=== PATIENT | female | born 1990 | race Caucasian/White ===

== ENCOUNTER 2016-07-12 11:44 | Emergency (ER) | payer OTHER ==
[~2016-07-12] VITALS: Ht 157.5 cm; Wt 89.8 kg
[~2016-07-12 11:44] MED LIST: CEPH-443 PO; CIPR500T4 PO; DOCU-144 PO; FLUC150T17 PO; IBUP-1542 PO; IBUP800T25 PO; PREN1TAB49; PREN1TAB49 PO
[2016-07-12 11:48] VITALS: Ht 157.5 cm; Wt 89.8 kg
[2016-07-12 12:36] LABS: ADD SCAN DIFF NO
[2016-07-12 12:38] LABS: BASOPHILS % 0.4 % (0.0-2.0); EOSINOPHILS % 0.1 % (0.0-7.0); HEMATOCRIT 40.7 % (37.0-47.0); LYMPHOCYTES # 1.2 10^3/ul (0.8-2.9); LYMPHOCYTES % 15.5 % (15.0-51.0); MEAN CORPUSCULAR HEMOGLOBIN 31.3 pg (29.0-33.0); MEAN CORPUSCULAR HGB CONC 34.4 g/dl (32.0-37.0); MEAN CORPUSCULAR VOLUME 91.1 fl (82.0-101.0); MEAN PLATELET VOLUME 9.7 fl (7.4-10.4); MONOCYTE # 0.4 10^3/ul (0.3-0.9); MONOCYTES % 4.5 % (0.0-11.0); NEUTROPHIL # 6.3 10^3/ul (1.6-7.5); NEUTROPHILS % 79.2 % (39.0-77.0); PLATELET COUNT 234 10^3/UL (140-415); RED BLOOD COUNT 4.47 10^6/ul (4.20-5.40); RED CELL DISTRIBUTION WIDTH 12.2 % (11.5-14.5); WHITE BLOOD COUNT 7.9 10^3/ul (4.8-10.8)
[2016-07-12 13:00] LABS: ADD UMIC NO; URINE BILIRUBIN (Dip) NEGATIVE (NEGATIVE); URINE BLOOD (Dip) NEGATIVE (NEGATIVE); URINE COLOR LT. YELLOW (YELLOW); URINE GLUCOSE (Dip) NEGATIVE (NEGATIVE); URINE KETONES (Dip) NEGATIVE (NEGATIVE); URINE LEUKOCYTE ESTERASE (Dip) NEGATIVE (NEGATIVE); URINE NITRITE (Dip) NEGATIVE (NEGATIVE); URINE TOTAL PROTEIN (Dip) NEGATIVE (NEGATIVE); URINE UROBILINOGEN (Dip) 0.2 E.U./dL (0.1-1.0)
--- NOTE | 2016-07-12 13:52 | ERD ---
ER Documentation Chief Complaint Date/Time DATE: 07/12/16 TIME: 13:51 Chief Complaint 3 weeks with spotting today HPI This is a 25 year old female G 2 P1 with last menstrual period of June 06, 2016 presenting to the emergency department complaining of mild pelvic pain and spotting for the past 2 days. She rates the pain mild in severity that comes and goes and cramping patient states she has very light bleeding and about 2 pantiliners in 1 day. She denies any nausea, vomiting, diarrhea. Denies any fevers. Patient states that she went to her primary care physician last Thursday and which she found out she was with a urine test. ROS All systems reviewed and are negative except as per history of present illness. Medications Home Meds Active Scripts Docusate Sodium* (Colace*) 100 Mg Capsule, 100 MG PO TID, #30 CAP Prov:ANTHONY DIAZ PA-C 08/21/15 Ibuprofen* (Motrin*) 800 Mg Tab, 800 MG PO Q6H Y for PAIN AND OR ELEVATED TEMP, #30 TAB Prov:ANTHONY DIAZ PA-C 08/21/15 Ciprofloxacin Hcl* (Ciprofloxacin Hcl*) 500 Mg Tablet, 500 MG PO BID, #14 TAB Prov:SAL SCHNEIDER PA-C 02/08/15 Cephalexin* (Keflex*) 500 Mg Capsule, 500 MG PO QID for 5 Days, CAP Prov:BRADLEY WHITMAN MD 09/14/14 Ibuprofen* (Motrin*) 600 Mg Tab, 600 MG PO Q6, #14 TAB Prov:BRADLEY WHITMAN MD 09/14/14 Fluconazole* (Diflucan*) 150 Mg Tablet, 150 MG PO ONCE, #1 TAB Prov:BRADLEY WHITMAN MD 09/14/14 Reported Medications Vits W-Ca,Fe,Fa(<1MG) () 1 Tab Tablet, 1 TAB PO DAILY 12/30/11 Vits W-Ca,Fe,Fa(<1MG) () 1 Tab Tablet 09/22/11 Allergies Allergies: Coded Allergies: No Known Allergy (Verified , 09/22/11) PMhx/Soc History of Surgery: Yes (caesarian sections; cholecystectomy) Anesthesia Reaction: No Hx Neurological Disorder: No Hx Respiratory Disorders: No Hx Cardiac Disorders: No Hx Psychiatric Problems: No Hx Miscellaneous Medical Probl: No Hx Alcohol Use: Yes (rarely) Hx Substance Use: No Hx Tobacco Use: No Smoking Status: Never smoker Physical Exam Vitals Vital Signs Date Time Temp Pulse Resp B/P Pulse Ox O2 Delivery O2 Flow Rate FiO2 07/12/16 11:48 98.1 97 18 108/60 99 Physical Exam GENERAL: well-developed/well-nourished, in no apparent distress, non-toxic appearing HENT: NC/AT, moist mucous membranes EYES: Conjunctiva normal NECK: Supple, no lymphadenopathy PULM: CTA bilaterally, no rales, rhonchi, or wheezing heard CV: Normal S1S2, RRR, good capillary refill GI: Soft, non-distended, mild tender to palpation pelvic Normal bowel sounds, no masses or organomegaly felt on exam No gross peritonitis, no bruits Negative Rovsing, negative Szymanski, negative McBurney's point, Negative CVAT BACK: No masses EXT: No clubbing, cyanosis, or edema NEURO: Alert and Orientated SKIN: Intact, normal turgor PSYCH: Normal mood and mentation Result Diagram: 07/12/16 1230 Results 24 hrs Laboratory Tests Test 07/12/16 12:30 07/12/16 12:37 White Blood Count 7.910^3/ul Red Blood Count 4.4710^6/ul Hemoglobin 14.0g/dl Hematocrit 40.7% Mean Corpuscular Volume 91.1fl Mean Corpuscular Hemoglobin 31.3pg Mean Corpuscular Hemoglobin Concent 34.4g/dl Red Cell Distribution Width 12.2% Platelet Count 26668^3/UL Mean Platelet Volume 9.7fl Neutrophils % 79.2% Lymphocytes % 15.5% Monocytes % 4.5% Eosinophils % 0.1% Basophils % 0.4% Nucleated Red Blood Cells % 0.0/100WBC Neutrophils # 6.310^3/ul Lymphocytes # 1.210^3/ul Monocytes # 0.410^3/ul Eosinophils # 0.010^3/ul Basophils # 0.010^3/ul Nucleated Red Blood Cells # 0.010^3/ul Beta HCG, Quantitative 375.0mIU/ml Urine Color LT. YELLOW Urine Clarity CLEAR Urine pH 6.5 Urine Specific [place] 1.020 Urine Ketones NEGATIVE Urine Nitrite NEGATIVE Urine Bilirubin NEGATIVE Urine Urobilinogen 0.2 E.U./dL Urine Leukocyte Esterase NEGATIVE Urine Hemoglobin NEGATIVE Urine Glucose NEGATIVE% Urine Total Protein NEGATIVE Procedures/MDM MDM: 25-year-old female presents to the ER with pelvic pain in and vaginal bleeding in , it may be a threatened , complete versus other. Low suspicion for , ovarian torsion, appendicitis, cholecystitis, pancreatitis, obstruction, pyelonephritis due to diagnostic testing and physical examination. UA, urine culture, blood work, ultrasound was done in the ED. CBC did not show any evidence of leukocytosis. Beta hCG was low at 375 OB ultrasound was done and radiologist stated: 1. Normal pelvic ultrasound with thickened endometrium. No intrauterine or gestational sac is seen.. 2. Trace free fluid in the pelvis with no adnexal masses identified. If the patient has a positive test, differential includes early , recent and ectopic cannot be completely excluded. Recommend clinical and laboratory correlation and follow up if indicated. I discussed the patient to return in 2 days or follow-up with her [employer] to trend her beta-hCG levels and repeat the ultrasound. At this time patient is hematuria stable she appears well speaking clearly and nontoxic appearing Disposition: hemodynamically stable for home. Diagnostic testing has been given to patient, discussed to follow-up with an OB-CLINICAL EXERCISE SPECIALIST. Discussed to return to the ED for any worsening signs or symptoms. Patient understood and agreed with this plan. Departure Diagnosis: Primary Impression: Vaginal bleeding in patient at less than 20 weeks gestation Additional Impression: Threatened Condition: Stable ANTHONY DIAZ PA-C July 12, 2016 13:52
--- NOTE | 2016-07-12 14:26 | RADRPT ---
PROCEDURE: US OB/Pelvis. CLINICAL INDICATION: Positive . Vaginal bleeding. TECHNIQUE: Multiple sonographic images of the pelvis were obtained. Transabdominal and transvagin al views of the pelvis are available for review. The images were reviewed on a PACS workstation. COMPARISON: No prior studies are available for comparison. FINDINGS: The uterus measures 8.3 x 4.7 x 4.9 cm. There is no intrauterine or gestational sac ident ified. Endometrial echo complex measures 20 mm. The right ovary measures 3.8 x 2.4 x 2.6 cm with a luteal cyst. The left ovary measures 2.9 x 1.8 x 1.8 cm. .The bilateral ovaries appear normal in s ize, shape, morphology, and flow.. There are no adnexal masses. Trace pelvic free fluid is seen.. IMPRESSION: 1. Normal pelvic ultrasound with thickened endometrium. No intrauterine or gestational s ac is seen.. 2. Trace free fluid in the pelvis with no adnexal masses identified. If the patient has a positive test, differential includes early , recent and ectopic cannot be completely excluded. Recommend clinical and laboratory correlation and follow up if indicated. RPTAT: EE .Luca Han MD, Date Time Electronically viewed and signed by .Luca Han MD, on 07/12/2016 14:25 .L/
== END 2016-07-12 15:04 | disposition home or self-care (01) ==
LOC: FTE 11:44
DX: O20.0 Threatened abortion (principal); Z3A.01 Less than 8 weeks gestation of pregnancy
CPT/HCPCS: 76801; 76817; 81003; 84702; 85025; 86900; 86901

== ENCOUNTER 2017-07-02 08:25 | Emergency (ER) | END 2017-07-02 10:04 | disposition left against medical advice (07) ==